=== PATIENT | male | born 1995 | race Two or more races ===

== ENCOUNTER 2017-12-24 16:27 | Emergency (ER) | payer OTHER ==
[~2017-12-24] VITALS: Ht 167.6 cm; Wt 77.1 kg
[2017-12-24] MEDS ORDERED: LIDOCAINE 2% (LOCAL ANESTH.) PF 5ml SDV ONE ×2 (17:04→17:05)
[2017-12-24] MEDS ORDERED: BACITRACIN TOP OINT 1 UD PKG TOP ONE ×2 (17:04→17:15)
[2017-12-24 17:14] VITALS: BP 121/81
[2017-12-24] MEDS ORDERED: TETANUS-DIPTH-ACEL PERTUSSIS 0.5ML SYRG IM ONE (17:15)
[2017-12-24] MEDS ORDERED: LIDOCAINE 1% (LOCAL ANESTH.) PF 5ml SDV ID ONE (17:15)
== END 2017-12-24 17:46 | disposition home or self-care (01) ==
LOC: ER 16:27
DX: S61.211A Laceration without foreign body of left index finger without damage to nail, initial encounter (principal); W03.XXXA Other fall on same level due to collision with another person, initial encounter; Y93.89 Activity, other specified; Y92.89 Other specified places as the place of occurrence of the external cause; Y99.8 Other external cause status
CPT/HCPCS: 12002; 90471; 90715

== ENCOUNTER 2018-03-14 19:37 | Emergency (ER) | payer OTHER ==
[~2018-03-14] VITALS: Ht 167.6 cm; Wt 81.6 kg
[2018-03-14 20:26] VITALS: BP 147/92
== END 2018-03-15 01:12 | disposition home or self-care (01) ==
LOC: ER 19:37
DX: S80.11XA Contusion of right lower leg, initial encounter (principal); W01.0XXA Fall on same level from slipping, tripping and stumbling without subsequent striking against object, initial encounter; Y93.89 Activity, other specified; Y99.8 Other external cause status; Y92.89 Other specified places as the place of occurrence of the external cause
CPT/HCPCS: 73700

== ENCOUNTER 2023-07-15 11:53 | Emergency (ER) | payer MEDICAID, OTHER ==
[~2023-07-15] VITALS: Ht 170.2 cm; Wt 80.3 kg
[2023-07-15] MEDS ORDERED: SODIUM CHLORIDE 0.9% 1,000 ML IVB ONE (12:30)
[2023-07-15] MEDS ORDERED: LORazepam 2MG/ML-1ML VIAL IV ONE (12:30)
[2023-07-15 13:14] LABS: Basophils # (auto) 0.1 10 ^3/uL (0-0.2); Basophils % (auto) 0.6 % (0.0-2.0); Eosinophils # (auto) 0.1 10 ^3/uL (0-0.8); Eosinophils % (auto) 0.9 % (0.0-7.0); Hematocrit 47.9 % (41.0-53.0); Hemoglobin 16.1 g/dL (13.5-17.5); Lymphocytes # (auto) 2.5 10 ^3/uL (0.4-5.4); Lymphocytes % (auto) 19.6 % (10.0-50.0); Mean Corpuscular Hemoglobin 29.1 pg (28.0-32.0); Mean Corpuscular Hgb Conc. 33.7 g/dL (32.0-36.0); Mean Corpuscular Volume 86.5 fL (80.0-100.0); Monocytes % (auto) 7.4 % (0.0-12.0); Neutrophils # (auto) 9.1 10 ^3/uL (1.6-8.6); Neutrophils % (auto) 71.5 % (37.0-80.0); Nucleated Red Blood Cells % 0.1 %; Red Blood Cells 5.55 10^6/uL (4.5-5.90); Red Cell Distribution Width 13.7 % (11.8-14.3); White Blood Cell 12.8 10^3/uL (4.4-10.8)
[2023-07-15 13:54] LABS: Alanine Aminotransferase 37 U/L (7-40); Albumin 5.1 g/dL (3.2-4.8); Alkaline Phosphatase 80 U/L (46-116); Anion Gap 16 (5-15); Aspartate Aminotransferase 25 U/L (13-40); BUN/Creatinine Ratio 12.1 (10.0-20.0); Blood Urea Nitrogen 13 mg/dL (9-23); Calcium 9.4 mg/dL (8.7-10.4); Carbon Dioxide 18 mmol/L (20-30); Chloride 99 mmol/L (98-107); Glucose 181 mg/dL (74-106); Potassium 3.8 mmol/L (3.5-5.1); Sodium 133 mmol/L (136-145)
[2023-07-15 13:55] LABS: Bilirubin, Total 1.6 mg/dL (0.2-1.0); Total Protein 8.1 g/dL (5.7-8.2)
[2023-07-15 14:34] LABS: Urine Bacteria FEW /hpf (None Seen); Urine Blood Negative /uL (Negative); Urine Clarity HAZY (Clear); Urine Color Yellow (Yellow); Urine Hyaline Cast FEW /lpf (0 - 2); Urine Mucus FEW (None Seen); Urine Protein, UAD 2+ (Negative); Urine Specific Gravity 1.033 (1.001-1.035); Urine WBC 1 /hpf (0 - 3); Urine pH 5.5 (5.0-8.0)
[2023-07-15 14:44] LABS: Amphetamine Screen, Urine Neg (NEGATIVE); Barbiturate Scree,Urine Neg (NEGATIVE); Benzodiazephine Screen, Urine Neg (NEGATIVE); Cocaine Screen, Urine Neg (NEGATIVE); Opiate Scree,Urine Neg (NEGATIVE)
[2023-07-15 14:45] LABS: Cannabinoid Screen, Urine Pos (NEGATIVE); Phencyclidine Screen, Urine Neg (NEGATIVE)
[2023-07-15] MEDS ORDERED: LORazepam 0.5 MG TAB PO ONE (15:00)
[2023-07-15 15:34] VITALS: BP 115/77; PULSE 86; RESP 18; TEMP 97.6; O2SAT 96
[2023-07-15] MEDS ORDERED: LORA-655 PO (15:45)
== END 2023-07-15 15:52 | disposition home or self-care (01) ==
LOC: ER 11:53
DX: F15.151 Other stimulant abuse with stimulant-induced psychotic disorder with hallucinations (principal); R73.9 Hyperglycemia, unspecified; Z79.899 Other long term (current) drug therapy
CPT/HCPCS: 36415; 74022; 80053; 80307; 81001; 83735; 85025; 96360; 96361; 99284; J7030

== ENCOUNTER 2023-09-10 00:39 | Inpatient (IN) | payer MEDICAID ==
[~2023-09-10] VITALS: Ht 170.2 cm; Wt 81.0 kg
[~2023-09-10 00:39] MED LIST: LORA-655 PO
[2023-09-10 02:19] LABS: Urine Bacteria FEW /hpf (None Seen); Urine Blood Negative /uL (Negative); Urine Clarity Clear (Clear); Urine Color Colorless (Yellow); Urine Mucus FEW (None Seen); Urine Protein, UAD Negative (Negative); Urine Specific Gravity 1.004 (1.001-1.035); Urine Urobilinogen Normal (Negative); Urine WBC <1 /hpf (0 - 3); Urine pH 5.5 (5.0-8.0)
[2023-09-10] MEDS: LIDOCAINE VISCOUS 2% 15ML UD PO ONE (03:30)
[2023-09-10 03:57] LABS: Basophils # (auto) 0.1 10 ^3/uL (0-0.2); Basophils % (auto) 0.4 % (0.0-2.0); Eosinophils # (auto) 0 10 ^3/uL (0-0.8); Eosinophils % (auto) 0.3 % (0.0-7.0); Hematocrit 49.2 % (41.0-53.0); Hemoglobin 16.2 g/dL (13.5-17.5); Lymphocytes # (auto) 1.8 10 ^3/uL (0.4-5.4); Lymphocytes % (auto) 11.5 % (10.0-50.0); Mean Corpuscular Hemoglobin 28.4 pg (28.0-32.0); Mean Corpuscular Volume 86.2 fL (80.0-100.0); Monocytes # (auto) 0.9 10 ^3/uL (0-1.3); Monocytes % (auto) 5.6 % (0.0-12.0); Neutrophils # (auto) 12.7 10 ^3/uL (1.6-8.6); Neutrophils % (auto) 82.2 % (37.0-80.0); Red Blood Cells 5.71 10^6/uL (4.5-5.90); Red Cell Distribution Width 13.4 % (11.8-14.3); White Blood Cell 15.4 10^3/uL (4.4-10.8)
[2023-09-10] MEDS: HYDROcodone-ACET 10/325MG TAB PO ONE (04:04)
[2023-09-10] MEDS: MAALOX PLUS or MAALOX 30 ML PO ONE (04:05)
[2023-09-10] MEDS: ONDANSETRON ODT 4 MG TAB PO ONE (04:05)
[2023-09-10 04:12] LABS: Alanine Aminotransferase 46 U/L (7-40); Alkaline Phosphatase 85 U/L (46-116); Anion Gap 13 (5-15); Aspartate Aminotransferase 27 U/L (13-40); Bilirubin, Total 1.3 mg/dL (0.2-1.0); Calcium 9.8 mg/dL (8.7-10.4); Carbon Dioxide 22 mmol/L (20-30); Chloride 99 mmol/L (98-107); Glucose 110 mg/dL (74-106); Lipase 45 U/L (12-53); Potassium 3.7 mmol/L (3.5-5.1); Sodium 134 mmol/L (136-145); Total Protein 8.5 g/dL (5.7-8.2)
[2023-09-10 05:04] LABS: BUN/Creatinine Ratio 5.5 (10.0-20.0); Blood Urea Nitrogen < 5 mg/dL (9-23)
[2023-09-10] MEDS: DICYCLOMINE HCL (10MG/ML) 2 ML AMPULE IM ONE (05:21)
[2023-09-10] MEDS: DICYCLOMINE HCL 10 MG CAP PO ONE (05:25)
[2023-09-10] MEDS: METOCLOPRAMIDE HCL 10 MG TAB PO ONE (05:29)
[2023-09-10] MEDS ORDERED: SODIUM CHLORIDE 0.9% 1,000 ML IV ONE ×2 (09:45→10:30)
[2023-09-10] MEDS: SODIUM CHLORIDE 0.9% 1,000 ML IV ONE (09:55)
[2023-09-10] MEDS: cefTRIAXone 1GM/50ML D5W 50 ML IV ONE (09:55)
[2023-09-10] MEDS ORDERED: ONDANSETRON HCL 4 MG/2 ML VIAL IV PRN (10:00)
[2023-09-10] MEDS ORDERED: MORPHINE SULFATE INJ 2 MG/ml SYRG IV PRN ×3 (10:00→12:45)
[2023-09-10] MEDS ORDERED: DOCUSATE SOD 100 MG CAP PO PRN (10:00)
[2023-09-10] MEDS ORDERED: SODIUM CHLORIDE 0.9% 1,000 ML IV SCH (10:00)
[2023-09-10] MEDS ORDERED: METOCLOPRAMIDE HCL 5MG/ml INJ 2ml VIAL IV PRN (10:45)
[2023-09-10] MEDS ORDERED: HYDROmorphone HCL 2 MG/ML VL/or syr IV PRN ×2 (10:45)
[2023-09-10] MEDS ORDERED: PROPOFOL 10 MG/ML 20 ML IV ONE (10:57)
[2023-09-10] MEDS ORDERED: KETOROLAC TROMETH 30 MG/ML 1ML VIAL ONE (10:57)
[2023-09-10] MEDS ORDERED: ONDANSETRON HCL 4 MG/2 ML VIAL ONE (10:57)
[2023-09-10] MEDS ORDERED: MIDAZOLAM HCL 2MG/2ML 2ml VIAL (1mg/ml) ONE (10:57)
[2023-09-10] MEDS ORDERED: ROCURONIUM 10MG/ML 10ML VIAL IV ONE (10:57)
[2023-09-10] MEDS ORDERED: fentaNYL CITRATE 100 MCG/2 ML VL ONE (10:57)
[2023-09-10] MEDS ORDERED: SODIUM CHLORIDE LOCK 10 ML ONE (10:57)
[2023-09-10] MEDS ORDERED: MEPERIDINE HCL (50 MG/ML) 1 ML VIAL ONE (10:57)
[2023-09-10] MEDS ORDERED: DexAMETHasone SOD PHOS 10MG/1ML VIAL INJ ONE (10:57)
[2023-09-10] MEDS ORDERED: NEOSTIGMINE 1 MG/ML INJ (10mg/10ML VIAL) ONE (10:57)
[2023-09-10] MEDS ORDERED: GLYCOPYRROLATE 0.2 MG/ML 1ML VIAL ONE (10:57)
[2023-09-10] MEDS: metroNIDAZOLE 500MG/100ML 100 ML IV ONE (10:58)
[2023-09-10] MEDS ORDERED: LIDOCAINE W/ EPINEPHRINE 1% 20ML VIAL ONE (11:24)
[2023-09-10] MEDS: SODIUM CHLORIDE 0.9% 1,000 ML IV SCH (13:50)
[2023-09-10 15:30] VITALS: BP 126/74; PULSE 77; RESP 16; TEMP 97.9; O2SAT 96
[2023-09-10 17:00] VITALS: BP 136/71; PULSE 86; RESP 14; TEMP 98.3; O2SAT 95
[2023-09-10] MEDS: AMPICILLIN & SULBACTAM SODIUM 3 GM in SODIUM CHL 0.9% 100 ML IV SCH (19:29)
[2023-09-10 20:00] VITALS: RESP 17; O2SAT 98
[2023-09-10 22:38] VITALS: BP 101/65; PULSE 72; RESP 18; TEMP 98.3; O2SAT 96
[2023-09-11 05:26] VITALS: BP 116/73; PULSE 75; RESP 18; TEMP 98.3; O2SAT 97
[2023-09-11] MEDS: ACETAMINOPHEN/CODEINE#3 (300/30mg) TAB PO PRN (05:26)
[2023-09-11 06:31] LABS: Basophils # (auto) 0 10 ^3/uL (0-0.2); Basophils % (auto) 0.1 % (0.0-2.0); Eosinophils # (auto) 0 10 ^3/uL (0-0.8); Eosinophils % (auto) 0.1 % (0.0-7.0); Hematocrit 39.7 % (41.0-53.0); Hemoglobin 13.1 g/dL (13.5-17.5); Lymphocytes # (auto) 2.3 10 ^3/uL (0.4-5.4); Lymphocytes % (auto) 18.1 % (10.0-50.0); Mean Corpuscular Hemoglobin 28.5 pg (28.0-32.0); Mean Corpuscular Volume 86.3 fL (80.0-100.0); Monocytes # (auto) 1.2 10 ^3/uL (0-1.3); Monocytes % (auto) 9.9 % (0.0-12.0); Neutrophils % (auto) 71.8 % (37.0-80.0); Red Cell Distribution Width 13.4 % (11.8-14.3); White Blood Cell 12.6 10^3/uL (4.4-10.8)
[2023-09-11 06:48] LABS: Alanine Aminotransferase 39 U/L (7-40); Alkaline Phosphatase 64 U/L (46-116); Anion Gap 9 (5-15); Aspartate Aminotransferase 34 U/L (13-40); Carbon Dioxide 27 mmol/L (20-30); Chloride 104 mmol/L (98-107); Glucose 92 mg/dL (74-106); Sodium 140 mmol/L (136-145); Total Protein 6.5 g/dL (5.7-8.2)
[2023-09-11 06:55] LABS: BUN/Creatinine Ratio 6.4 (10.0-20.0); Blood Urea Nitrogen < 5 mg/dL (9-23)
[2023-09-11 08:00] VITALS: RESP 17; O2SAT 98
[2023-09-11 08:49] VITALS: BP 123/78; PULSE 63; RESP 14; TEMP 98.3; O2SAT 96
[2023-09-11] MEDS ORDERED: TRAM50TA2 PO (09:35)
[2023-09-11] MEDS ORDERED: DOCU-94 PO (09:35)
[2023-09-11] MEDS ORDERED: AUG875T PO (09:35)
[2023-09-11] MEDS: PANTOPRAZOLE 40 MG/10 ML VIAL INJ IV SCH (09:44)
[2023-09-11 13:00] VITALS: BP 121/87; PULSE 73; RESP 18; TEMP 98.7; O2SAT 95
== END 2023-09-11 14:00 | disposition home or self-care (01) | DRG 710 ==
LOC: ER 00:39 → OVERFLOW 09:58 → CENTRAL 15:19
PROVIDERS: ADMIT Nurse Practitioner Family; ATTEND Internal Medicine
PROC: 0FT44ZZ Resection of Gallbladder, Percutaneous Endoscopic Approach (ICD-10-PCS; principal; 2023-09-10 11:31)
DX: A41.9 Sepsis, unspecified organism (principal); K81.0 Acute cholecystitis; F12.10 Cannabis abuse, uncomplicated; F10.10 Alcohol abuse, uncomplicated; Z90.49 Acquired absence of other specified parts of digestive tract
CPT/HCPCS: 36415; 76705; 80053; 81001; 83605; 83690; 85025; 87040; 96365; 96372; 96375; C9113; G0378; J1100; J1885; J2250; J2405; J2704; J3490; Q0162

== ENCOUNTER 2024-07-04 10:23 | Emergency (ER) | payer MEDICAID ==
[~2024-07-04] VITALS: Ht 170.2 cm; Wt 73.2 kg
[~2024-07-04 10:23] MED LIST changes: +AUG875T PO; +DOCU-94 PO; +TRAM50TA2 PO
[2024-07-04 11:26] VITALS: BP 139/81; PULSE 94; RESP 16; TEMP 98.1; O2SAT 97
--- NOTE | 2024-07-04 11:35 | ED.PDOC ---
History of Present Illness HPI Comments A 28 YEAR OLD MALE PRESENTS TO THE ED WITH COMPLAINT OF SORE THROAT AND EPIGASTRIC DISCOMFORT. PATIENT STATES HE HAS BEEN EXPERIENCING A SORE THROAT FOR THE PAST 4 DAYS AND THEN BEGAN TO EXPERIENCE EPIGASTRIC DISCOMFORT WITH A BURNING SENSATION AND FREQUENT BELCHING THAT STARTED TODAY. PATIENT NOTES HE DRANK ALCOHOL YESTERDAY NIGHT. PATIENT DENIES FEVER, CHILLS, SHORTNESS OF BREATH, CHEST PAIN, VOMITING, HEADACHE, OR OTHER COMPLAINTS. NO OTHER SYMPTOMS OR MODIFYING FACTORS AT THIS TIME. PATIENT IS ALERT, ORIENTED X 4, AND HAS STEADY GAIT. Chief Complaint: Sore Throat Time Seen by MD: 10:46 Primary Care Provider: MARTYIES Reviewed Notes: Nurses Notes, Medications, Allergies Allergies: Coded Allergies: NO KNOWN ALLERGIES (Unverified , 12/24/17) Home Meds Active Scripts Pantoprazole Sodium Sesquihydr (Protonix) 40 Mg Tab, 40 MG PO DAILY, #20 TAB Prov:ELDER SCOTT 07/04/24 Cephalexin Monohydrate (Cephalexin) 500 Mg Cap, 1 CAP PO QID, #28 CAP Prov:ELDER SCOTT 07/04/24 Tramadol Hcl (Tramadol Hcl) 50 Mg Tab, 50 MG PO TIDP PRN for 6 Days, #18 TAB Prov:HAN THEODORE MD 09/11/23 Docusate Sodium (Colace) 100 Mg Cap, 1 CAP PO BID PRN for 20 Days, #40 CAP Prov:HAN THEODORE MD 09/11/23 Amoxicillin & Pot Clavulanate (AUGMENTIN TABLET) 875 Mg Tb, 875 MG PO BID for 7 Days, #14 TAB Prov:HAN THEODORE MD 09/11/23 Lorazepam (Ativan) 0.5 Mg Tab, 0.5 MG PO BID for 5 Days, #10 TAB Prov:ERIN CARLTON MD 07/15/23 Information Source: Patient Mode of Arrival: Ambulatory Severity: Moderate Timing: Days Duration: Since onset, Days Prehospital treatment: None Medication Refill: For: Other (SORE THROAT AND EPIGASTRIC DISCOMFORT) Past Medical History PAST MEDICAL HISTORY: Denies Surgical History: Cholecystectomy Family History Family History: Reviewed,noncontributory to illness Social History Smoker: Non-Smoker Alcohol: Denies ETOH Use Drugs: Denies Drug Use Lives In: Home Constitutional: denies: chills, diaphoresis, fatigue, fever, malaise, sweats, weakness, others EENTM: reports: throat pain, throat swelling; denies: blurred vision, double vision, ear bleeding, ear discharge, ear drainage, ear pain, ear ringing, eye pain, eye redness, hearing loss, mouth pain, mouth swelling, nasal discharge, nose bleeding, nose congestion, nose pain, photophobia, tearing, voice changes, others Respiratory: denies: cough, hemoptysis, orthopnea, SOB at rest, shortness of breath, SOB with excertion, stridor, wheezing, others Cardiovascular: denies: chest pain, dizzy spells, diaphoresis, Dyspnea on exe rtion, edema, irregular heart beat, left arm pain, lightheadedness, palpitations, PND, syncope, others Gastrointestinal: reports: others (EPIGASTRIC DISCOMFORT); denies: abdomen distended, abdominal pain, blood streaked bowels, constipated, diarrhea, dysphagia, difficulty swallowing, hematemesis, melena, nausea, poor appetite, poor fluid intake, rectal bleeding, rectal pain, vomiting Genitourinary: denies: burning, dysuria, flank pain, frequency, hematuria, incontinence, penile discharge, penile sore, pain, testicle pain, testicle swelling, urgency, others Neurological: denies: dizziness, fainting, headache, left sided numbness, left sided weakness, numbness, paresthesia, pre-existing deficit, right sided numbness, right sided weakness, seizure, speech problems, tingling, tremors, weakness, others Musculoskeletal: denies: back pain, gout, joint pain, joint swelling, muscle pain, muscle stiffness, neck pain, others Integumetry: denies: bruises, change in color, change in hair/nails, dryness, laceration, lesions, lumps, rash, wounds, others Allergic/Immunocompromised: denies: Difficulty Healing, Frequent Infections, Hives, Itching, others Hematologic/Lymphatic: denies: anemia, blood clots, easy bleeding, easy bruisi ng, swollen glands, others Endocrine: denies: excessive hunger, excessive sweating, excessive thirst, exce ssive urination, flushing, intolerance to cold, intolerance to heat, unexplained weight gain, unexplained weight loss, others Psychiatric: denies: anxiety, bipolar disorder, depression, hopeless, panic disorder, schizophrenia, sleepless, suicidal, others All Other Systems: Reviewed and Negative Physical Exam General Appearance: No Apparent Distress, Normal HEENT: PERRL/EOMI, Pharyngeal Erythema (TONSILLAR SWELLING, NO EXUDATES. ), TMs Normal Neck: Full Range of Motion, Non-Tender, Normal, Normal Inspection Respiratory: Chest Non-Tender, Lungs Clear, No Accessory Muscle Use, No Respiratory Distress, Normal Breath Sounds Cardiovascular: No Edema, No JVD, No Murmur, No Gallop, Normal Peripheral Pulses, Regular Rate/Rhythm Breast Exam: Deferred Gastrointestinal: No Organomegaly, Non Tender, No Pulsatile Mass, Normal Bowel Sounds, Soft Genitalia: Deferred Pelvic: Deferred Rectal: Deferred Extremities: No calf tenderness, Normal capillary refill, Normal inspection, Normal range of motion, Non-tender, No pedal edema Musculoskeletal : Apperance: Normal Neurologic: Alert, director of physical therapy II-XII nml as Tested, No Motor Deficits, Normal Affect, Normal Mood, No Sensory Deficits Cerebellar Function: Normal Reflexes: Normal Skin: Dry, Normal Color, Warm Peripheral Pulses: 2+ carotid (R), 2+ carotid (L) Lymphatic: No Adenopathy Was a procedure done? Was a procedure done?: No Differential Dx Considerations may include: GERD, TONSILLITIS, UVULITIS, PHARYNGITIS, OTITIS MEDIA X-Ray, Labs, Meds, VS Vital Signs Date Time Temp Pulse Resp B/P (MAP) Pulse Ox O2 Delivery O2 Flow Rate FiO2 07/04/24 11:26 94 16 97 Room Air 07/04/24 11:26 98.1 94 16 139/81 (100) 97 98.1 07/04/24 10:45 98.1 94 16 139/81 (100) 97 Current Medications Medications (Trade) Dose Ordered Sig/Sania Route Start Time Stop Time Status Last Admin Ceftriaxone Sodium (Rocephin) 1,000 mg ONCE ONCE IM 07/04/24 11:30 07/04/24 11:32 DC 07/04/24 11:50 Lidocaine HCl (Xylocaine 2% Viscous) 10 ml ONCE ONCE MT 07/04/24 11:30 07/04/24 11:32 DC 07/04/24 11:50 Belladonna Alkaloids/ Phenobarbital ( Elixir) 10 ml ONCE ONCE PO 07/04/24 11:30 07/04/24 11:32 DC 07/04/24 11:50 Al Hydrox/Mg Hydrox/Simethicone (Maalox Plus) 30 ml ONCE ONCE PO 07/04/24 11:30 07/04/24 11:32 DC 07/04/24 11:50 Famotidine (Pepcid Tablet) 40 mg ONCE ONCE PO 07/04/24 11:30 07/04/24 11:32 DC 07/04/24 11:50 X-Ray, Labs, Meds, VS Comment EXTERNAL MEDICAL RECORDS REVIEWED: [NONE] INDEPENDENT HISTORIANS: [NONE] SOCIAL DETERMINANTS OF HEALTH: [NONE] LABS ORDERED: NONE REVIEWED AND INTERPRETED RESULTS: NONE IMAGING ORDERED: NONE TREATMENTS ORDERED: GI COCKTAIL PO, PEPCID 40MG PO, ROCEPHIN 1G IM PROCEDURES PERFORMED: NONE CRITICAL CARE TIME: NONE I HAVE DISCUSSED THE PATIENT WITH THE ATTENDING PHYSICIAN DR. SOTO AND HE AGREES WITH THE PATIENT'S PLAN OF CARE AND DISPOSITION. BASED ON HISTORY OF PRESENT ILLNESS, AND PHYSICAL EXAM, PATIENT WILL BE DISCHARGED HOME. DISCUSSED PLAN FOR DISCHARGE HOME WITH RX []. MEDICATION WARNINGS GIVEN. SHARED DECISION MAKING: DISCUSSED WITH PATIENT THAT THEIR WORKUP WAS NORMAL. PATIENT INSTRUCTED TO FOLLOW UP WITH PRIMARY CARE PROVIDER IN 1-2 DAYS FOR RE- EVALUATION OF SYMPTOMS. PATIENT VERBALIZES UNDERSTANDING TO RETURN TO ED FOR NEW OR WORSENING SYMPTOMS OR IF FOLLOW UP WITH PCP CANNOT BE OBTAINED. PATIENT FEELS COMFORTABLE GOING HOME AT THIS TIME. ALL QUESTIONS ADDRESSED AT TIME OF DISCHARGE. Time of 1ST Reevaluation: 12:45 Reevaluation 1ST: Improved Patient Education/Counseling: Diagnosis, Treatment, Need For Follow Up Family Education/Counseling: Diagnosis, Treatment, Need For Follow Up Comments PT STATES HE FEELS BETTER AFTER TREATMENT AND HE IS READY TO GO HOME NOW. Medical Screening: No EMC Exist At This Time Departure 1 Departure Time of Disposition: 13:00 Impression: Primary Impression: Acute tonsillitis Qualified Codes: J03.90 - Acute tonsillitis, unspecified Additional Impression: GERD (gastroesophageal reflux disease) Qualified Codes: K21.9 - Gastro-esophageal reflux disease without esophagitis Disposition: HOME / SELF CARE / HOMELESS Condition: Stable Additional Instructions: FOLLOW-UP WITH PCP IN 1 TO 2 DAYS. TAKE MEDICATIONS PRESCRIBED. RETURN TO ED FOR ANY NEW OR WORSENING SYMPTOMS. e-Prescriptions Pantoprazole Sodium Sesquihydr (Protonix) 40 Mg Tab 40 MG PO DAILY, #20 TAB Prov: ELDER SCOTT 07/04/24 Cephalexin Monohydrate (Cephalexin) 500 Mg Cap 1 CAP PO QID, #28 CAP Prov: ELDER SCOTT 07/04/24 Discharged With: Self Critical Care Note Critical Care Time?: No Stability Stability form required: No I personally scribed for ELDER SCOTT ([email or web address]) on 07/04/24 at 11:35. Electronically submitted by Peter Gates ([email or web address]). ELDER SCOTT Jul 04, 2024 11:35
[2024-07-04] MEDS: DONNATAL 5ml ORAL Elix (BELLADONNA ALK-PHENOBARB) PO ONE (11:50)
[2024-07-04] MEDS: LIDOCAINE VISCOUS 2% 15ML UD MT ONE (11:50)
[2024-07-04] MEDS: cefTRIAXone SOD 1,000 MG VL IM ONE (11:50)
[2024-07-04] MEDS: MAALOX PLUS or MAALOX 30 ML PO ONE (11:50)
[2024-07-04] MEDS: FAMOTIDINE 20 MG TAB PO ONE (11:50)
[2024-07-04] MEDS ORDERED: CEPH500C PO (12:44)
[2024-07-04] MEDS ORDERED: PANT40TA2 PO (12:44)
== END 2024-07-04 12:59 | disposition home or self-care (01) ==
LOC: ER 10:23
DX: K21.9 Gastro-esophageal reflux disease without esophagitis (principal); J03.90 Acute tonsillitis, unspecified; Z90.49 Acquired absence of other specified parts of digestive tract; Z79.899 Other long term (current) drug therapy
CPT/HCPCS: 96372; 99284; J0696